=== PATIENT | male | born 2000 | race Caucasian/White ===

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

== ENCOUNTER → 2022-02-21 | Outpatient (CLI) | payer OTHER | LOC: COL.RAD 11:35 | DX: N50.812 Left testicular pain (principal) ==